=== PATIENT | male | born 1955 | race Caucasian/White ===

== ENCOUNTER 2017-03-03 11:57 | Emergency (ER) | payer OTHER ==
[~2017-03-03] VITALS: Ht 177.8 cm; Wt 101.2 kg
--- NOTE | 2017-03-03 12:29 | ED NEURO DEFICIT/STROKE ---
History of Present Illness General Chief Complaint: Eye Problems Stated Complaint: LOSS OF VISION IN EYES BILAT; DIZZINESS Source: patient, old records Exam Limitations: no limitations Vital Signs & Intake/Output Vital Signs & Intake/Output ED Intake and Output 03/04 0000 03/03 1200 Intake Total Output Total Balance Patient 223 lb 223 lb Weight Allergies Coded Allergies: NO KNOWN ALLERGIES (02/16/12) Reconcile Medications Butalbital/Acetaminophen (Butalbital-Acetamin 50-300 Tab) 50 MG-300 MG TABLET 1 TAB PO Q6HR PRN HEADACHE Triage Note: PT WAS EVALUATED FOR HEAD ACHE WEDNESDAY AND HAD CT SCAN, TOLD TO FOLLOW UP WITH EYE DR , WHICH HE DID AND WAS CLEARED, AND THEN WENT TO HIS PMD AND WAS TOLD THAT HE NEEDS TO SEE NEUROLOGIST BUT TOLD HIM TO COME TO ER AND HAVE AN MRI FIRST. PT HAS PAIN L SIE OF HEAD WHICH HAS BEEN SINCE WEDNESDAY, ANS STATES THAT HIS EYES ARE SWOLLEN. Triage Nurses Notes Reviewed? yes HPI: 61-year-old male with no medical history presents to ER for evaluation complaining of persistent headache for the past 1-1/2 weeks. The patient was seen in this ER for the same last week had a normal CAT scan. He states since then the generalized headache has persisted associated with diplopia and blurry vision in the right eye. Patient was referred to an freelance graphic designer whom he saw and was ruled out for glaucoma and was advised that he needs to follow-up with a neurologist. He called his primary care physician who referred him to the ER. He denies any arm or leg weakness numbness or tingling. He is not taken anything for his headache. No rashes to the skin noted tinnitus dizziness or lightheadedness however his states that he has at times appeared to be disoriented. No nausea no vomiting. No fever no chills the patient states that he closes his left eye he sees many lines running through his right eye vision. No vision loss he does not wear glasses or contacts (EBONY RUTLEDGE) Past History Travel History Traveled to [place] past 21 day No Medical History Any Pertinent Medical History? none Neurological: NONE EENT: NONE Cardiovascular: NONE Gastrointestinal: NONE Hepatic: NONE Renal: NONE Musculoskeletal: NONE Psychiatric: NONE Blood Disorders: NONE Surgical History Surgical History: non-contributory Psychosocial History What is your primary language [place] Tobacco Use: Never used ETOH Use: denies use Illicit Drug Use: denies illicit drug use Family History Hx Contributory? No (EBONY RUTLEDGE) Review of Systems Review of Systems Constitutional: Reports: see HPI. Comments Review of systems: See HPI, All other systems negative. Constitutional, no chills no fever, no malaise HEENT: No visual changes no sore throat no congestion Cardiovascular: No chest pain , no palpitation , Skin: no rashes, no change in skin Respiratory: No dyspnea no cough no sputum GI: No nausea no vomiting, no diarrhea, : No dysuria Muscle skeletal: No joint pain, no joint swelling, no back pain, no neck pain, Neurologic: No numbness no confusion, headache Psych: No stress Heme/endocrine: No bruising Immunology: No lymphadenopathy (EBONY RUTLEDGE) Physical Exam Physical Exam General Appearance: well developed/nourished, no apparent distress, alert, awake Cranial Nerves: normal hearing, normal speech, PERRL Coordination/Gait: normal finger to nose Motor/Sensory: no motor/sensory deficits Comments: Well-developed well-nourished person in no acute distress Head/Face: Atraumatic, no maxillary/frontal sinus tenderness, no facial swelling Eyes: PERRL, EOMI, no conjunctival injection. No nystagmus Ear:External auditory canal and Tympanic membranes clear, Nose: atraumatic.Normal inspection: No bleeding, no septal hematoma Throat: Moist mucous membranes.Pharynx normal. No pharyngeal erythema/exudate seen. No stridor/drooling or assymetry. No swelling or edema. Neck: Supple, FROM Back: Nontender, no CVA tenderness. Full range of motion Cardiovascular: Regular rate and rhythms no murmurs rubs Respiratory: Chest nontender.There were no bony deformities, no asymmetry. No respiratory distress. Patient speaking in full complete sentences. Breath sounds clear to auscultation bilaterally: NO W/R/R Abdomen: Soft, nontender nondistended, no appreciable organomegaly. Normal bowel sounds. No rebound/guarding, Extremity: No edema, full range of motion of extremities,5 out of 5 strength noted to bilateral upper and lower extremities Neuro: Alert oriented x3, motor sensory normal, cranial nerves II through XII grossly intact. There were no obvious focal neurologic abnormalities. Skin: No appreciable rash on exposed skin, skin is warm and dry. Psych: Mood and affect is normal, memory and judgment is normal. Core Measures CVA/TIA Diagnosis: No Severe Sepsis Present: No Septic Shock Present: No (EBONY RUTLEDGE) Progress Differential Diagnosis: acute glaucoma, electrolyte imbalance, hypoglycemia, intracranial Hem., intracranial mass/tumor, migraine STARR, stroke, subarachnoid Hem., vertebrobasilar insuff. Diagnostic Imaging: Viewed by Me: MRI. Discussed w/RAD: MRI. Radiology Impression: PATIENT: ELANA LOPEZ PRESENT AGE : 61 PATIENT ACCOUNT NO: [id number] : 56 LOCATION: [facility] ORDERING PHYSICIAN: EBONY DELGADO SERVICE DATE: 03/03/17 EXAM TYPE: MRI - MRI- HEAD W/O ИРИНА EXAMINATION: MR BRAIN WITHOUT CONTRAST CLINICAL INFORMATION: Rule out CVA. Rule out malignancy. Vision loss. Headache. COMPARISON: CT head dated 02/26/2017. TECHNIQUE: MRI of the brain without contrast was obtained using routine sequences. FINDINGS: No focal reduced diffusion is seen to suggest acute or subacute cerebral ischemia. No intracranial mass, intracerebral edema, intra- axial blood products, midline shift, or extra-axial collection is visualized. There is minimal microvascular ischemic change. The ventricles and sulcal spaces appear normal. Normal arterial and venous vascular flow voids are present. Mastoid air cells are clear. There is mild ethmoid air cell mucosal disease. IMPRESSION: No evidence of acute/subacute cerebral or cerebellar infarction. No intracranial mass or mass effect is seen. Minimal microvascular ischemic change. DICTATED BY: KRYSTINA HERNANDEZ MD DATE/TIME DICTATED:03/03/171350 MARKETING CONTENT SPECIALIST:KACEY DATE/TIME TRANSCRIBED:03/03/171350 CONFIDENTIAL, DO NOT COPY WITHOUT APPROPRIATE AUTHORIZATION. <Electronically signed in Other Vendor System> SIGNED BY: KRYSTINA HERNANDEZ MD 03/03/17 1400 Initial ED EKG: none (EBONY RUTLEDGE) Plan of Care: Orders Procedure Date/time Status Regular Diet 03/03 D Active LYME TITRE 03/03 1248 Active WESTERGREN SED RATE 03/03 1248 Complete COMPREHENSIVE METABOLIC PANEL 03/03 1248 Complete CBC WITHOUT DIFFERENTIAL 03/03 1248 Complete Laboratory Tests 03/03/17 1255: Anion Gap 11, Estimated GFR > 60, BUN/Creatinine Ratio 17.8, Glucose 110 H, Calcium 9.9, Total Bilirubin 0.6, AST 63 H, ALT 127 H, Alkaline Phosphatase 50 , Total Protein 6.9, Albumin 4.5, Globulin 2.4, Albumin/Globulin Ratio 1.9, CBC w Diff NO MAN DIFF REQ, RBC 5.18, MCV 89.8, MCH 30.7, RDW 13.2, MPV 8.5, Gran % 61.6, Lymphocytes % 27.4, Monocytes % 9.5 H, Eosinophils % 1.2, Basophils % 0.3 , Absolute Granulocytes 5.2, Absolute Lymphocytes 2.3, Absolute Monocytes 0.8 H , Absolute Eosinophils 0.1, Absolute Basophils 0, PUBS MCHC 34.2, ESR Westergren 5, Lyme Disease Antibody Pending he is declining anything for pain when offered old records reviewed labs ordered MRI ordered case discussed with Dr. lopes Patient is again declining anything for pain offered I discussed with him and his his MRI results and lab results pending callback from neurology. The patient was seen and evaluated by Dr. Vang who agrees with plan I spoke with Dr. Orozco regarding the patient's presentation, he advised that the symptoms were not consistent with migraine cluster headache, he advised to have the patient follow-up in the office his only other recommendation was for possible lumbar puncture which after I spoke with the patient regarding the same he declined today he is ambulatory with steady gait, the patient has ranged afebrile here he has not wanted anything for pain. Prescription for FIORICET provided return precautions were discussed information was provided for follow- up with neurology. (EBONY RUTLEDGE) Departure Departure Time of Disposition: 1611 Disposition: HOME OR SELF CARE Condition: Stable Clinical Impression Primary Impression: Migraine Referrals: COLTEN WHITEHEAD,EBONY RAJAN MD,NO Burch (PCP/Family) Additional Instructions: Follow-up with neurologist Dr. Marin.shahnaz as directed. Return to ER anytime sooner with any concerns Departure Forms: Customer Survey General Discharge Information Prescriptions: Current Visit Scripts Butalbital/Acetaminophen (Butalbital-Acetamin 50-300 Tab) 1 TAB PO Q6HR PRN HEADACHE #15 TAB (EBONY RUTLEDGE) PA/FIRE OFFICER Co-Sign Statement Statement: ED Attending supervision documentation- [X] I saw and evaluated the patient. I have also reviewed all the pertinent lab results and diagnostic results. I agree with the findings and the plan of care as documented in the PA's/FIRE OFFICER's documentation. [X] I have reviewed the ED Record and agree with the PA's/FIRE OFFICER's documentation. [] Additions or exceptions (if any) to the PAs/FIRE OFFICER's note and plan are summarized below: [] (ROSAS WHITEHEAD,YUNI)
[2017-03-03 13:03] LABS: ABSOLUTE BASOPHIL COUNT 0 /CUMM (0.0-0.2); ABSOLUTE EOSINOPHIL COUNT 0.1 /CUMM (0.0-0.7); ABSOLUTE GRANULOCYTE CT 5.2 /CUMM (1.4-6.5); ABSOLUTE LYMPH COUNT 2.3 /CUMM (1.2-3.4); ABSOLUTE MONOCYTE COUNT 0.8 /CUMM (0.10-0.60); BASOPHIL % 0.3 % (0.0-2.0); EOSINOPHIL % 1.2 % (0-5); GRANULOCYTE % 61.6 % (42.2-75.2); HEMATOCRIT 46.5 % (42-52); MEAN CORPUSCULAR HGB 30.7 PG (27.0-31.0); MEAN CORPUSCULAR HGB CONC 34.2 G/DL (33.0-37.0); MEAN CORPUSCULAR VOLUME 89.8 FL (80.0-94.0); MEAN PLATELET VOLUME 8.5 FL (7.4-10.4); PLATELET COUNT 274 /CUMM (130-400); RBC DISTRIBUTION WIDTH 13.2 % (11.5-14.5); RED BLOOD CELL CT 5.18 /CUMM (4.70-6.10); WHITE BLOOD CELL COUNT 8.5 /CUMM (4.8-10.8)
--- NOTE | 2017-03-03 14:00 | MRI REPORT ---
EXAMINATION: MR BRAIN WITHOUT CONTRAST CLINICAL INFORMATION: Rule out CVA. Rule out malignancy. Vision loss. Headache. COMPARISON: CT head dated 02/26/2017. TECHNIQUE: MRI of the brain without contrast was obtained using routine sequences. FINDINGS: No focal reduced diffusion is seen to suggest acute or subacute cerebral ischemia. No intracranial mass, intracerebral edema, intra-axial blood products, midline shift, or extra-axial collection is visualized. There is minimal microvascular ischemic change. The ventricles and sulcal spaces appear normal. Normal arterial and venous vascular flow voids are present. Mastoid air cells are clear. There is mild ethmoid air cell mucosal disease. IMPRESSION: No evidence of acute/subacute cerebral or cerebellar infarction. No intracranial mass or mass effect is seen. Minimal microvascular ischemic change.
[2017-03-03 15:02] VITALS: BP 134/73
[2017-03-03] MEDS ORDERED: BUTALBITAL-ACE1 EAC1 PO (16:15)
== END 2017-03-03 16:20 ==
LOC: ERH 11:57
PROVIDERS: Physician Assistant Medical
DX: G43.909 Migraine, unspecified, not intractable, without status migrainosus (principal); H53.8 Other visual disturbances
CPT/HCPCS: 70551; 86618